=== PATIENT | female | born 1990 | race Caucasian/White ===

== ENCOUNTER → 2019-06-10 14:50 | Outpatient (BNVA) | payer OTHER, SELFPAY | PROVIDERS: Referring Provider Obstetrics & Gynecology; Visit Provider Obstetrics & Gynecology | DX: O20.0 Threatened abortion (principal) | CPT/HCPCS: 84702 ==

== ENCOUNTER → 2019-06-14 11:00 | Outpatient (BNVA) | payer OTHER, SELFPAY | PROVIDERS: Referring Provider Obstetrics & Gynecology; Visit Provider Obstetrics & Gynecology | DX: O03.9 Complete or unspecified spontaneous abortion without complication (principal) | CPT/HCPCS: 84702 ==

== ENCOUNTER 2019-11-26 09:49 | Outpatient (CLI) | payer OTHER, SELFPAY ==
--- NOTE | 2019-11-26 09:51 | MR_ITS ---
WS: [id number] MRI HEAD WITHOUT CONTRAST TECHNIQUE: Sagittal T1, T2 axial, T2 axial FLAIR, axial and coronal T1 images, axial susceptibility w eighted imaging, axial diffusion weighted images, and coronal T2 images were obtained. CLINICAL INFORMATION: BLURRED VISION;HYPERTENSION;HEADACHE COMPARISON: None. FINDINGS: No evidence of restricted diffusion to suggest acute ischemia. Ventricular system and basal cisterns are patent. No suspicious intracranial signal abnormalities. Normal oates-white differentiation. Radha l posterior fossa. Normal vascular flow voids at the skull base. No extra-axial fluid collections. Re tention cysts within the maxillary sinuses. Mild mucosal thickening ethmoid air cells. Mastoid air ce lls well aerated. No hemosiderin on susceptibly weighted images. Normal optic chiasm and pituitary infundibulum. Normal cavernous sinuses. MR/MR head wo con* [id number] IMPRESSION: 1. No evidence of restricted diffusion to suggest acute ischemia. 2. No suspicious intracranial signal abnormalities. 3. Retention cysts within the maxillary sinuses. 4. Normal optic chiasm and pituitary infundibulum. 5. No hemosiderin on the susceptibly weighted images.
--- NOTE | 2019-11-26 10:53 | USCV_ITS ---
Sobia Leon Age: 29 Gender: F : 1990 Exam Date: 11/26/2019 10:56 Ordering Phys: Saima Woodruff Technologist: Eden Qureshi Exam Location: [facility] [place] Indication: BLURRED VISION FAMILY HISTORY OF GENETIC NARROWING OF CCA Risk Factors: fAMILY HISTORY OF NARROW CCA. SYMPTOMS ON RT SIDE Previous Vascular Surgery: None Right Brachial BP: / Left Brachial BP: / Right Left Velocity (cm/s) Spectral Plaque Velocity (cm/s) Spectral Plaque Syst/Diast Broadening Syst/Diast Broadening 140.00/40.80 Prox CCA 120.80/ 36.30 94.80/ 30.90 Mid CCA 81.10 / 31.70 84.90/ 28.70 Distal CCA 87.00 / 25.90 91.50/ 26.50 Prox ICA 76.40 / 23.50 108.10/39.70 Mid ICA 100.20/ 32.60 87.30/ 31.30 Distal ICA 103.80/ 36.20 114.70 ECA 101.10 1.14 ICA/CCA 1.28 Antegrade Vertebral Antegrade 26.00/ 6.90 cm/s 53.10/ 19.30 cm/s Tri Subclavian Tri 113.0 169.4 0 0 FINDINGS ntimal thickening at the bifurcations and internal carotid arteries bilaterally Antegrade flow in the vertebral arteries bilaterally Normal Doppler flow velocities in the external carotid arteries bilaterally CONCLUSIONS Intimal thickening at the bifurcations and internal carotid arteries bilaterally. No significant stenosis, based on the above findings Dr Yoel Crump MD FACC (Electronically Signed) Final Date: 27 November 2019 20:21 S
== END 2019-11-26 09:50 | disposition home or self-care (01) ==
LOC: RADSHAW 09:50
PROVIDERS: PCP Nurse Practitioner Family; Visit Provider Nurse Practitioner Family
DX: H53.8 Other visual disturbances (principal); I10 Essential (primary) hypertension; R51 Headache; I65.23 Occlusion and stenosis of bilateral carotid arteries; J34.1 Cyst and mucocele of nose and nasal sinus
CPT/HCPCS: 70551; 93880

== ENCOUNTER → 2020-02-29 09:17 | Outpatient (BNVA) | payer OTHER, SELFPAY | PROVIDERS: PCP Nurse Practitioner Family; Visit Provider Obstetrics & Gynecology | DX: Z34.90 Encounter for supervision of normal pregnancy, unspecified, unspecified trimester (principal) | CPT/HCPCS: 84702 ==

== ENCOUNTER → 2020-04-05 11:32 | Outpatient (BNVA) | payer OTHER, SELFPAY | PROVIDERS: PCP Nurse Practitioner Family; Visit Provider Family Medicine | DX: Z20.828 Contact with and (suspected) exposure to other viral communicable diseases (principal) | CPT/HCPCS: 87635 ==

== ENCOUNTER 2020-09-04 22:30 | Inpatient (IN) | payer OTHER, SELFPAY ==
[2020-09-04] VITALS (12 sets, daily range): BP systolic 189–206; BP diastolic 93–108; PULSE 78–106; TEMP 37.1; O2SAT 98–100
--- NOTE | 2020-09-04 21:33 | USR_ITS ---
PROCEDURE INFORMATION: Exam: US Biophysical Profile Without Non-Stress Test Exam date and time: 09/04/2020 9:43 PM Age: 30 years old Clinical indication: Other: Decreased movement; TECHNIQUE: Imaging protocol: US biophysical profile without non-stress testing. COMPARISON: US OB >= 14 weeks fetus [id number] 06/15/2020 10:39 AM FINDINGS: BIOPHYSICAL PROFILE: Breathin/2 Gross body movements: 0/2 tone: 0/2 Qualitative amniotic fluid: 2/2 Biophysical Profile Score: 2/8 US/US OB BPP wo NST [id number] IMPRESSION: 1. Biophysical profile score is 2 out of 8. 2. Largest single vertical amniotic pocket 5.9 cm. 3. heart beat 138 bpm. 4. Cephalic presentation. 5. Posterior placenta.
--- NOTE | 2020-09-04 22:40 | ANES.PREANE2 ---
Pre-Anesthetic Assessment Pre-Anesthetic Assessment: Height/Weight: Height 17.37 m Temp Pulse BP Pulse Ox 98.8 F 90 206/100 99 09/04/20 21:06 09/04/20 22:00 09/04/20 22:00 09/04/20 21:51 Preop Diagnosis: IUP, decreased movement Was Beta Gabino taken within 24 hours: N/A Was Clonidine taken within 24 hours: N/A Social: Social History: No alcohol and No tobacco Exam: Pre-Anes Outpt Exam: alert, oriented x 3, clear to auscultation bilaterally and regular rate & rhythm Airway: Submandibular: WNL Cervical ROM: WNL MP: 2 History/ROS: No significant history except as noted Pulmonary: Pulmonary: None reported CV/HEM: CV/HEM: None reported : : None reported Hepatic: Hepatic: None reported GI: GI: None reported Metabolic: Metabolic: Morbid obesity Musc/skel: Musc/skel: None reported Neuropsych: Neuropsych: None reported Anesthetic Plan: ASA status: 2E Anesthesia: Anesthesia Evaluation and General Data Anesthesia Cardiac Studies: No Data to Display
--- NOTE | 2020-09-04 23:18 | XRR_ITS ---
PROCEDURE INFORMATION: Exam: XR Abdomen Exam date and time: 09/04/2020 11:33 PM Age: 30 years old Clinical indication: Screening exam; Post surgical status; ; Prior surgery; Surgery date: Post-operative (0-2 days); Additional info: Stat section TECHNIQUE: Imaging protocol: XR of the abdomen. Views: Frontal supine view of the abdomen. 1 View. COMPARISON: No relevant prior studies available. FINDINGS: Gastrointestinal tract: Moderate retained feces. Bones/joints: Unremarkable. XR/XR abdomen 1V* [id number] IMPRESSION: Moderate retained feces.
[2020-09-04 23:39] LABS: Basophils # 0.1 10^3/uL (0.0-0.1); Basophils % 0.5 %; Eosinophils # 0.1 10^3/uL (0.0-0.8); Eosinophils % 0.4 %; Hematocrit 38.3 % (37.0-47.0); Hemoglobin 13.5 g/dL (11.5-15.3); Lymphocytes # 2.8 10^3/uL (0.8-4.8); Lymphocytes % 16.6 %; Mean Corpuscular HGB Conc 35.2 g/dL (30.0-36.0); Mean Corpuscular Hemoglobin 30.8 pg (28.0-34.0); Mean Corpuscular Volume 87.2 fL (81-99); Mean Platelet Volume 13.4 fL (7.4-10.4); Monocytes # 1.2 10^3/uL (0.2-0.9); Monocytes % 7.3 %; Neutrophils # 12.46 10^3/uL (1.8-7.7); Neutrophils % 74.6 %; Nucleated Red Blood Cells % 0 %; Platelet Count 151 10^3/cmm (130-400); Red Blood Count 4.39 10^6/uL (4.1-5.3); Red Cell Distribution Width 12.9 % (12.1-15.1); White Blood Count 16.7 10^3/uL (4.0-10.0)
--- NOTE | 2020-09-04 23:56 | P.HP_ITS ---
Providers/Chief Complaint Admitting Physician: Trace Daily MD Primary Care Provider: Trace Daily Chief Complaint: decreased movement History of Present Illness Sobia Leon is a 30 year old 3 para 1-0-1-1 female at 31 weeks and 6 days who presented to the hospital because of reduced movement. She not felt the baby move all day. When she arrived to the hospital, heart tones were hard to find, and a deceleration was noted. A biophysical profile was ordered. She had 2 points for 4 breathing and only had an RASHEED of 5 I am not sure what the largest single vertical pocket was. There was no movement or breathing activity noted for 30 minutes. She did have some variability in her heart tones but she continued to have decelerations. As result I made the decision to proceed with a stat . Review of Systems General: Reports: 10 or more systems reviewed and unremarkable except in HPI and below Const: Reports: fatigue; Denies: fever(s) Eyes: Denies: change in vision Card: Denies: chest pain Musc: Reports: back pain Nasim/Lymph: Denies: easy bruising Medications/Allergies Home Medications Medication Instructions Recorded Confirmed Last Taken Type No Known Home Medications 06/10/19 06/10/19 Unknown History Allergies Allergy/AdvReac Type Severity Reaction Status Date / Time No Known Allergies Allergy Verified 02/29/20 09:12 Vitals/I&O/Wt Last Vital Signs Temp 98.8 F 09/04/20 21:06 Pulse 90 09/04/20 22:00 BP 206/100 09/04/20 22:00 Pulse Ox 99 09/04/20 21:51 Physical Exam Const: COMMON NORMALS: patient oriented x3 and alert HENMT: COMMON NORMALS: moist oral mucous membranes HEAD & SCALP: normal to inspection Chest: COMMONS NORMALS: normal inspection of the chest Resp: COMMON NORMALS: clear to auscultation bilaterally AUSCULTATION: clear to auscultation bilaterally Cardio: COMMON NORMALS: regular rate and regular rhythm RATE: regular rate RHYTHM: regular rhythm GI: INSPECTION: Yes normal to inspection and Yes other (Gravid) Extremity: COMMON NORMALS: normal to inspection GENERAL: Yes edema (Trace) Neuro: COMMON NORMALS: patient oriented x3, moves all extremities and no sensory deficits noted SENSORIUM/ORIENTATION: Yes alert Psych: COMMON NORMALS: mental status grossly normal APPEARANCE: Yes other (Very anxious) Skin: COMMON NORMALS: no rashes or lesions noted GENERAL SKIN EXAM: no rashes or lesions noted Data : 09/04/20 22:35 A&P Assessment and plan (1) distress affecting labor: A stat was ordered. I contacted Dr. Quezada as well as anesthesia. I also contacted [facility] so that they could have a team coming as we performed her . Status: Acute (2) 31 weeks gestation of : Status: Acute (3) Gestational hypertension: The patient was incredibly nervous and has been noted to have blood pressure responded to her anxiety in the past. As such it is not clear if her blood pressure was a physiologic or a psychiatric phenomenon. If it does not come down after the , we will treat her for preeclampsia. 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
[2020-09-05] VITALS (34 sets, daily range): BP systolic 126–179; BP diastolic 68–117; PULSE 75–106; RESP 15–18; TEMP 36.5–37; O2SAT 88–102; BMI 45.4
--- NOTE | 2020-09-05 00:08 | PM.OP ---
Operative Report Date of procedure: September 05, 2020 Pre-op Diagnosis: 31-week IUP, decreased movement Post-op Diagnosis: Abruption Procedure Done: Stat low-transverse section Specimens removed/disposition: 1. 31-week female with Apgars of 3 6 and 9. Weight is still unknown. 2. Placenta with a three-vessel cord delivered intact. Pathology: other (Placenta) Surgeon: Trace Daily Anesthesia: General Estimated blood loss (mL): 800 Complications: None Condition: stable Disposition: floor Brief History: Refer to history and physical Procedure: The patient was brought back to the operating room where she was quickly prepped and draped. General anesthesia was initiated. A lower transverse skin incision was then made with a #10 blade. I then dissected down to the underlying subcutaneous tissue until arriving at the prerectal fascia. The fascia was then nicked with the scalpel bilaterally. The fascial incisions were then carried laterally with Clifford scissors. Attention was then turned to the superior aspect of the incision which was grasped with kochers and tented up away from the underlying rectus abdominis muscles. The muscles were then dissected away from the fascia manually, and later with Clifford scissors. Attention was then turned to the inferior aspect of the incision, and the fascia was dissected away from the underlying muscle in similar fashion. The rectus abdominis muscles were then spread manually. The peritoneum was entered manually. Excellent visualization of the uterus was noted. A lower transverse uterine incision was then made with a #10 blade. Upon arriving at the intrauterine cavity, the uterine incision was then extended manually. The was noted to be in vertex position. The baby was delivered without difficulty. There was no meconium. There was no nuchal cord. Mature, dark clots were noted in the uterus. The cord was cut and clamped. The baby was then handed to Dr. Rivera and the nurse. The placenta was removed intact. The uterus was externalized. The intrauterine cavity was cleansed of any remaining debris. The uterine incision was reapproximated in 2 layers. The first layer was performed with 0 Vicryl in a running locked stitch. The second layer was an imbricating stitch also using 0 Vicryl. The uterus was replaced into the abdomen. The peritoneum was then irrigated with warm saline. I reexamined the uterine incision and found it to be hemostatic. The rectus abdominis muscles were then reapproximated using 0 Vicryl in a running stitch. The fascia was then reapproximated using 0 Vicryl in running stitch. The subcutaneous tissue was then reapproximated using 0 Vicryl in a running stitch. The skin was then reapproximated using 4-0 Vicryl with a Aleksandar needle in a running subcuticular stitch. An x-ray was performed and was within normal limits with no laps or instruments identified in the abdomen. Also of note, the patient's blood pressure was within normal limits while under general anesthesia. After coming out of general anesthesia, and becoming more anxious, her blood pressure once again started to elevate, though not yet to the presurgical levels.
[2020-09-05] MEDS: LORazepam 2 mg/mL INJ 1 mL 0.5 MG IVP (00:33)
[2020-09-05] MEDS: ketorolac 30 mg/mL INJ IVP ×4 (01:19→19:45)
[2020-09-05 01:56] LABS: Add Urine Culture? Yes; Add Urine Microscopic? YES; Bacteria Urine 1+ /hpf; Bilirubin Urine Neg (Negative); Blood Urine 2+ (Negative); Glucose Urine UA Norm (Normal); Ketones Urine Negative (Negative); Leukocyte Esterase Urine Negative (Negative); Nitrate Urine Negative (Negative); Protein Urine 3+ (Negative); Specific Gravity, Urine 1.015 (1.005-1.030); Squamous Epithelial Cell Urine 0-4 /hpf (0-5); Urine Appearance SL Hazy (CLEAR); Urine Color Yellow (Yellow); Urobilinogen Urine Norm (Negative); WBC Urine 15-25 /hpf (0-5); pH Urine 5 (5-7)
--- NOTE | 2020-09-05 02:00 | ANE.PACU2 ---
Inpatient post-anesthesia follow up: Airway intact: Yes Vital signs: Temperature 98.6 F Pulse Rate 77 Respiratory Rate 16 Blood Pressure 145/89 Pulse Oximetry 96 Oxygen Delivery Me thod Room Air Oxygen Flow Rate Fraction of Inspir ed Oxygen Hydration adequate: Yes Nausea and vomiting: No Pain level: 2 Mental status: Baseline
[2020-09-05 02:38] LABS: Urine Creatinine 265 mg/dL (28-217)
[2020-09-05 02:49] LABS: Alanine Aminotransferase 13 U/L (0-33); Albumin Level 3.3 g/dL (3.5-5.2); Alkaline Phosphatase 106 IU/L (35-105); Anion Gap 16.7 (5-19); Aspartate Amino Transferase 17 U/L (0-32); Blood Urea Nitrogen 13 mg/dL (6-20); Calcium 8.3 mg/dL (8.5-10.5); Carbon Dioxide 17 mmol/L (22-29); Chloride 104 mmol/L (98-107); Globulin 3.2 g/dL (1.3-4.6); Glomerular Filtration Rate 99.6 mL/min (90-130); Glucose 87 mg/dL (65-115); Osmolality Calculated 277 mOsm/kg (285-295); Potassium 3.7 mmol/L (3.5-5.1); Sodium 134 mmol/L (136-145); Total Bilirubin 0.3 mg/dL (0.15-1.2); Total Protein 6.5 g/dL (6.6-8.7); Uric Acid 6.7 mg/dL (2.4-5.7)
[2020-09-05] MEDS: magnesium sulfate premix 4 GM/100 ML PREMIX IV (03:20)
--- NOTE | 2020-09-05 04:15 | PC.NURSE ---
called STAT section 2239. To OR room at 2244, cut time 2250. Infant delivery time of 2250. Placenta 2251. PRIYANKA RN
[2020-09-05] MEDS: labetalol 5 mg/mL SDV 20mL 20 MG IVP (06:53)
[2020-09-05] MEDS: prenatal vitamin Capsule 1 CAP PO (11:14)
[2020-09-05] MEDS: dextrose 5%-lactated ringers 1,000 ML 125 ML IV (11:14)
[2020-09-05] MEDS: docusate sodium 100 mg Capsule PO ×2 (11:15→19:46)
[2020-09-05] MEDS: HYDROcodone-acetaminophen 5-325 mg Tablet PO ×2 (11:19→22:32)
[2020-09-05 12:28] LABS: Hematocrit 31.4 % (37.0-47.0); Mean Corpuscular Hemoglobin 30.6 pg (28.0-34.0); Mean Corpuscular Volume 87.2 fL (81-99); Mean Platelet Volume 12.5 fL (7.4-10.4); Platelet Count 134 10^3/cmm (130-400); Red Cell Distribution Width 12.7 % (12.1-15.1); White Blood Count 19.9 10^3/uL (4.0-10.0)
[2020-09-05] MEDS: magnesium sulfate premix 20 GM/500 ML BAG IV (14:30)
[2020-09-06] MEDS: HYDROcodone-acetaminophen 5-325 mg Tablet PO ×2 (04:10→09:42)
[2020-09-06 04:11] VITALS: BP 145/89; PULSE 77; RESP 16; TEMP 37
[2020-09-06 04:46] VITALS: BP 145/89; PULSE 77; RESP 16; TEMP 37
--- NOTE | 2020-09-06 07:25 | P.DS_ITS ---
Discharge Providers JUNIOR ACCOUNTANT BOOKKEEPER Date of Admission: 09/04/20 22:30 Date of Discharge: 09/06/20 Attending Provider at Admission: Trace Daily MD Attending Provider at Discharge: Trace Daily MD Primary Care Provider: Trace Daily Diagnoses at Discharge Discharge Diagnosis (1) distress affecting labor: Status: Acute (2) 31 weeks gestation of : Status: Acute (3) Gestational hypertension: Status: Acute Reason for Visit Reason for Visit: decreased movement Hospital Course Hospital Course The patient is a 30-year-old 3 para 1-0-1-1 with an estimated gestation al age of 31 weeks and 5 days who presented to the hospital with reduced movement. A biophysical profile was performed and the baby was found to have a 2 out of 8 biophysical profile. She is also noted to have decelerations on her heart tones. As result a decision was made to proceed with a stat C- section. The was unremarkable. The baby did remarkably well considering her gestational age. During that process the patient was also noted to have elevated blood pressures. In the past she been noted to have high blood pressures that were result of anxiety that resolved once anxiety resolved as well. I was hopeful that was what was causing her blood pressures to be elevated. The week prior she had a protein creatinine ratio was 0.17. A preeclamptic panel was found and her protein creatinine ratio was found to be 3. As result she was placed on magnesium for 24 hours. Her course was relatively unremarkable. Her bleeding was unremarkable. Her urine output was appropriate. She did continue to have mildly elevated blood pressures with systolic blood pressures ranging 140s to 150 range. Her pain was well controlled. Despite her elevated blood pressures, she did not have any other symptoms of preeclampsia. Information Peripartum Data: Delivery Method: Physical Exam Narrative: EXAM NARRATIVE: She is in no acute distress Lungs are clear auscultation bilaterally Her heart has a regular rate and rhythm Her fundus is below the umbilicus and firm Her dressing is clean, dry and intact Her extremities have trace edema Urinary Catheter Management^: Sneed: Cath Placed During This Visit: yes, but has since been removed by the nurse Reason for Continuing Indwelling Catheter: Decision to DC Catheter Urinary Catheter Date of Insertion: 09/04/20 Urinary Catheter Time of Insertion: 22:41 Date Urinary Catheter Removed: 09/05/20 Time Urinary Catheter Discontinued: 23:00 Discharge Data Data Completed and Pending: Completed Studies During Hospitalization Category Date Time Status XR abdomen 1V* 74 018 Stat Exams 09/04/20 23:18 Completed US OB BPP w o NST 98202 Stat Ultrasound 09/04/20 21:33 Completed Pending at discharge Category Date Time Status Urine Culture Sta t Lab 09/05/20 01:45 Received Pathology: Surgic al [PTH] Stat Pth 09/04/20 23:26 Ordered Labs from last 24 hours 09/05/20 09/05/20 09/05/20 12:10 12:10 01:35 WBC 19.9 H RBC 3.60 L Hgb 11.0 L Hct 31.4 L MCV 87.2 MCH 30.6 MCHC 35.0 RDW 12.7 Plt Count 134 MPV 12.5 H Blood Type O Negative Rho(D) Type Negative / 0 Antibody Screen Positive Antibody Identific ation Anti-D Screen Negative Vitals: Last Vital Signs Temp 98.6 F 09/06/20 04:46 Pulse 77 09/06/20 04:46 Resp 16 09/06/20 04:46 BP 145/89 09/06/20 04:46 Pulse Ox 96 09/05/20 14:10 Discharge Plan Discharge Patient Disposition: Home Condition: Stable Prescriptions: New hydrocodone-acetaminophen 5-325 mg Tablet 1 - 2 tab PO Q4H PRN (Reason: Moderate To Severe Pain) Qty: 30 RF: 0 DOK 100 mg Capsule 100 mg PO BID Qty: 20 RF: 0 ibuprofen 800 mg Tablet 800 mg PO TID Qty: 45 RF: 0 Continued RF: 0 Discharge Orders: Discharge Order (Routine); Ordered 09/06/20 Ordered By: Trace Daily Referrals: Trace Daily MD [Physician] - 4-7 days Discharge Diet: Usual diet Discharge Activity: Limit activity as instructed Patient Instructions: Opioid Safety Discharge Attestations JUNIOR ACCOUNTANT BOOKKEEPER Time Spent in Discharge Care*: less than 30 min Coding Level of Care Code Acute Occupational Health Rn for Chg Fwd Diagnoses distress affecting labor O77.9 31 weeks gestation of Z3A.31 Gestational hypertension O13.9
--- NOTE | 2020-09-06 09:01 | PC.NURSE ---
note Pt. reports milk expression is going well. She has no questions
[2020-09-06] MEDS: measles,mumps,rubella pf Vial (w/diluent) 0.5 ML SUBCUT (09:40)
[2020-09-06] MEDS: ibuprofen 800 mg tablet PO (09:42)
[2020-09-06] MEDS: prenatal vitamin Capsule 1 CAP PO (09:42)
[2020-09-06] MEDS: docusate sodium 100 mg Capsule PO (09:42)
[2020-09-06 10:00] VITALS: BP 148/102; PULSE 109; RESP 16; TEMP 36.7; O2SAT 98
== END 2020-09-06 10:00 | disposition home or self-care (01) | DRG 788 ==
LOC: OPOB 09-05 08:02 → OBGYN 09-05 08:02
PROVIDERS: Admitting Provider Family Medicine; PCP Nurse Practitioner Family; Visit Provider Family Medicine
PROC: (CPT 59514; principal; 2020-09-04 22:50)
DX: O45.93 Premature separation of placenta, unspecified, third trimester (principal); O76 Abnormality in fetal heart rate and rhythm complicating labor and delivery; O13.4 Gestational [pregnancy-induced] hypertension without significant proteinuria, complicating childbirth; O14.94 Unspecified pre-eclampsia, complicating childbirth; Z3A.31 31 weeks gestation of pregnancy; Z37.0 Single live birth
CPT/HCPCS: 12345; 36415; 51702; 59025; 59409; 74018; 76819; 80053; 80500; 81001; 82570; 84156; 84550; 85025; 85027; 85460; 86850; 86870; 86900; 87086; 88307; 90384; 90707; 96372; 96374; 96375; 98960; 99211; J0330; J1170; J1885; J2060; J2405; J2704; J3010; J3475; J3490

== ENCOUNTER 2021-09-03 08:12 | Emergency (ER) | payer OTHER, SELFPAY ==
[2021-09-03 08:15] VITALS: BP 176/80; PULSE 91; RESP 18; TEMP 36.6; O2SAT 100; BMI 43.8
[2021-09-03 08:18] VITALS: BP 161/105; PULSE 95; RESP 18; TEMP 36.6; O2SAT 98
--- NOTE | 2021-09-03 08:20 | ECG_ITS ---
[facility] Test Date: 2021-09-03 Pat Name: Sobia Leon Department: Room: Gender: Female Clinical Data Management Manager: : 1990 Requested By: Derek Diaz Order Number: [id number] Melani MD: Vishnu Oliveira M.D. Measurements Intervals [place] Rate: 103 P: 41 IN: 173 QRS: 26 QRSD: 94 T: 20 QT: 319 QTc: 418 Interpretive Statements SINUS TACHYCARDIA ABNORMAL RHYTHM ECG No previous ECG available for comparison Electronically Signed On 09-03-2021 16:23:20 CDT by Vishnu Oliveira M.D. [id number]
--- NOTE | 2021-09-03 08:20 | CT_ITS ---
WS: [id number] CT HEAD TECHNIQUE: Noncontrast CT of the head obtained from the skullbase to the vertex. CLINICAL INFORMATION: Symptoms of Acute Stroke COMPARISON: None. DLP: 866.[address] scans at [facility] use at least one of these dose optimization techniques: automated e xposure control; mA and/or kV adjustment per patient size (includes targeted exams where dose is matc hed to clinical indication); or iterative reconstruction. FINDINGS: No evidence of intracranial hemorrhage or mass effect. Ventricular system and basal cisterns are razo nt. No extra-axial fluid collections. No evidence of mass or mass effect. Normal oates-white different iation. Paranasal sinuses and mastoid air cells are well aerated. .Normal visualized soft tissues. CT/CT head wo con* [id number] IMPRESSION: 1. No evidence of intracranial hemorrhage or mass effect. 2. Normal oates-white differentiation. 3. No acute intracranial findings.
--- NOTE | 2021-09-03 08:33 | CT_ITS ---
WS: [id number] CTA HEAD AND NECK TECHNIQUE: Contrast enhanced CTA of the head and neck with coronal and sagittal reformatted images an d maximum intensity projection (MIP) images. NASCET criteria utilized. CLINICAL INFORMATION: known thrombosis, R sided weakness COMPARISON: None. DLP: 2544.[address] scans at [facility] use at least one of these dose optimization techniques: automated e xposure control; mA and/or kV adjustment per patient size (includes targeted exams where dose is matc hed to clinical indication); or iterative reconstruction. FINDINGS: Some images degraded by venous contamination. RIGHT: RIGHT common carotid artery is patent. No significant RIGHT ICA stenosis. RIGHT ICA is patent to the skull base. LEFT: LEFT common carotid artery is patent. No significant LEFT ICA stenosis. LEFT ICA is patent to t he skull base. INTRACRANIAL CTA: Both vertebral arteries are patent. LEFT dominant vertebral artery. RIGHT vertebral RIGHT partially e nds in PICA. Basilar artery is patent. Normal vascularity to the NATIONAL ACCOUNT REPRESENTATIVE territory bilaterally. Both ICAs are patent at the skull base. Normal vascularity to the MANI and MCA territories bilaterally . Patent anterior communicating artery. Patent posterior communicating arteries bilaterally. Lung apices are well aerated. Straightening of the normal cervical lordosis. Retention cyst RIGHT maxillary sinus. CT/CT angio headneck* [id number] IMPRESSION: 1. No significant ICA stenosis bilaterally. 2. Normal intracranial CTA. No flow-limiting stenosis. 3. No other acute findings.
[2021-09-03 08:43] LABS: Basophils # 0.1 10^3/uL (0.0-0.1); Basophils % 0.9 %; Eosinophils # 0.3 10^3/uL (0.0-0.8); Hematocrit 45.7 % (37.0-47.0); Hemoglobin 14.7 g/dL (11.5-15.3); Lymphocytes # 3.8 10^3/uL (0.8-4.8); Lymphocytes % 41.3 %; Mean Corpuscular HGB Conc 32.2 g/dL (30.0-36.0); Mean Corpuscular Hemoglobin 28.2 pg (28.0-34.0); Mean Corpuscular Volume 87.5 fl (81-99); Mean Platelet Volume 11.3 fL (7.4-10.4); Monocytes # 0.8 10^3/uL (0.2-0.9); Monocytes % 8.2 %; Neutrophils # 4.31 10^3/uL (1.8-7.7); Neutrophils % 46.4 %; Nucleated Red Blood Cells % 0 %; Platelet Count 204 10^3/cmm (130-400); Red Blood Count 5.22 10^6/uL (4.1-5.3); Red Cell Distribution Width 14.7 % (12.1-15.1); White Blood Count 9.3 10^3/uL (4.0-10.0)
--- NOTE | 2021-09-03 08:43 | ED_ITS ---
HPI - Neuro Symptoms/Deficit General: Chief Complaint: Neuro Symptoms/Deficit Stated Complaint: facial numbness Time Seen by Provider: 09/03/21 08:19 Source: patient Mode of arrival: ambulatory Limitations: no limitations History of Present Illness: 31-year-old female presents emergency room with complaints of numbness on the right side of her mouth. Patient has subclavian and right internal jugular thrombosis for which she is on Coumadin. Is requiring 15 mg of Coumadin daily to maintain her anticoagulation status. These DVTs are thought to be result of COVID infection. She has a family history of a father who had a early stroke. She also has markedly elevated blood pressure today when she arrives here. She has been taking all of her medications regularly. She feels a little bit weak on the right side however on testing she has normal no visual disturbances no difficulty speech or swallowing. Onset (ago): minute(s) Time: 08:15 Last Observed Normal: 08:02 Location: right face History of same: No Severity: mild Quality: numb Relieving factors: none Exacerbating factors: none Associated symptoms: Deny chest pain, malaise, nausea or vomiting Review of Systems Const: Denies: fever(s), chills, body aches, change in appetite, fatigue or malaise ENMT: Denies: throat pain, ear or mastoid pain, nasal discharge or nasal congestion Card: Denies: chest pain, edema, dyspnea on exertion or orthopnea Resp: Denies: dyspnea, productive cough or non-productive cough GI: Denies: abdominal pain, nausea, vomiting, hematemesis, coffee ground emesis, diarrhea, constipation, bloating, hematochezia or melena : Denies: flank pain, difficulty voiding, dysuria, urinary frequency or urinary urgency Skin/Breast: Denies: rash or pruritus PFS ED PFSH: Medical History 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 COVID-19 Deep vein thrombosis (DVT) of right upper extremity Surgical History Delivery by section NIH stroke score NIHSS: Level Of Consciousness - 1a: 0 Level Of Consciousness Questions - 1b: Both Correct Level Of Consciousness Commands - 1c: Both Correct Best Gaze - 2: Normal Visual Grover - 3: No Visual Loss Facial Palsy - 4: Radha l Motor Arm Right - 5: No Drift Motor Arm Left - 5: No Drift Motor Leg Right - 6: No Drift Motor Leg Left - 6: No Drift Limb Ataxia - 7: Absent Sensory - 8: Normal Best Language - 9: No Aphasia Dysarthia - 10: Normal Extinction And Inattention - 11: 0 Score: Total Score: 0 Physical Exam Const: GENERAL APPEARANCE: cooperative and comfortable ORIENTATION/CONSCIOUSNESS: Yes awake, Yes oriented to person, Yes oriented to place and Yes oriented to time HENMT: COMMON NORMALS: normocephalic and atraumatic HEAD & SCALP: normocephalic and atraumatic Neck/C-Spine: COMMON NORMALS: no JVD Resp: COMMON NORMALS: normal respiratory effort, No retractions, No use of accessory muscles and clear to auscultation bilaterally AUSCULTATION: clear to auscultation bilaterally Cardio: COMMON NORMALS: no JVD, regular rate, regular rhythm and No murmurs present (Cardio) RATE: regular rate RHYTHM: regular rhythm GI: COMMON NORMALS: Soft to palpation and No hepatosplenomegaly present AUSCULTATION: Yes normoactive bowel sounds PALPATION: Yes Soft to palpation, No Tenderness to palpation present (GI), No Guarding due to palpation present (GI) and Yes No hepatosplenomegaly present : COMMON NORMALS: No no CVA tenderness BLADDER/KIDNEY EXAM: No no CVA tenderness Back/Pelvis: COMMON NORMALS: negative for no CVA tenderness Extremity: COMMON NORMALS: normal to inspection, capillary refill normal, no clubbing, cyanosis or edema, no calf tenderness and no pedal edema Neuro: SENSORIUM/ORIENTATION: Yes oriented to person, Yes oriented to place and Yes oriented to time OTHER: NIH of 0. Subjectively patient reports right facial numbness of the corner of her mouth however only test her to sensation is normal bilaterally. Skin: COMMON NORMALS: no rashes or lesions noted GENERAL SKIN EXAM: no rashes or lesions noted Course Vital Signs: Vital signs: Vital Signs Temperature 98.6 F 09/03/21 11:06 Pulse Rate 68 09/03/21 11:06 Respiratory Rate 18 09/03/21 11:06 Blood Pressure 135/70 09/03/21 11:06 Pulse Oximetry 96 09/03/21 11:06 MDM - Neuro Symptoms/Deficit Medical Decision Making Patient has persistent right periorbital numbness although on testing she states that generally feels about the same but she has a sense that it is numb on that side. She has had this in the past as well had an MRI for a couple years ago. Blood pressure was little elevated when she got here she has no focal neurologic deficits CT of the head and CTA head and neck are negative discussed with her primary care doctor Dr. Daily also discussed Dr. Moss sense is that this probably a migraine variant will get started on low-dose topiramate give her ketorolac and promethazine here we will discharge her home have her follow-up with primary care and set up follow-up with neurology. In addition to that we starting on the topiramate we discussed the risks and benefits with breast- feeding her child is 11 months old started on a low-dose just 25 at bedtime there is not a lot of data available discussed with her she is still is comfortable with trialing it for now. Medical Records I reviewed the patient's medical records. Lab Data I reviewed the patient's lab results. : 09/03/21 08:35 09/03/21 08:[address] 09/03/21 08:20 IMPRESSION: 1. No evidence of intracranial hemorrhage or mass effect. 2. Normal oates-white differentiation. 3. No acute intracranial findings. Head/Neck CTA 09/03/21 08:33 IMPRESSION: 1. No significant ICA stenosis bilaterally. 2. Normal intracranial CTA. No flow-limiting stenosis. 3. No other acute findings. Laboratory Results WBC 9.3 10^3/uL (4.0-10.0) 09/03/21 08:35 RBC 5.22 10^6/uL (4.1-5.3) 09/03/21 08:35 Hgb 14.7 g/dL (11.5-15.3) 09/03/21 08:35 Hct 45.7 % (37.0-47.0) 09/03/21 08:35 MCV 87.5 fl (81-99) 09/03/21 08:35 MCH 28.2 pg (28.0-34.0) 09/03/21 08:35 MCHC 32.2 g/dL (30.0-36.0) 09/03/21 08:35 RDW 14.7 % (12.1-15.1) 09/03/21 08:35 Plt Count 204 10^3/cmm (130-400) 09/03/21 08:35 MPV 11.3 fL (7.4-10.4) H 09/03/21 08:35 Neut % (Auto) 46.4 % 09/03/21 08:35 Lymph % (Auto) 41.3 % 09/03/21 08:35 [place] % (Auto) 8.2 % 09/03/21 08:35 Eos % (Auto) 3.0 % 09/03/21 08:35 Baso % (Auto) 0.9 % 09/03/21 08:35 Neut # (Auto) 4.31 10^3/uL (1.8-7.7) 09/03/21 08:35 Lymph # (Auto) 3.8 10^3/uL (0.8-4.8) 09/03/21 08:35 [place] # (Auto) 0.8 10^3/uL (0.2-0.9) 09/03/21 08:35 Eos # (Auto) 0.3 10^3/uL (0.0-0.8) 09/03/21 08:35 Baso # (Auto) 0.1 10^3/uL (0.0-0.1) 09/03/21 08:35 Nucleated RBC % (auto) 0 % 09/03/21 08:35 Nucleated RBCs # 0.0 /100WBC 09/03/21 08:35 PT 19.30 SECONDS (12.1-14.9) H 09/03/21 08:35 INR 1.59 (0.8-1.2) H 09/03/21 08:35 APTT 30.5 SECONDS (23.9-36.7) 09/03/21 08:35 Sodium 138 mmol/L (136-145) 09/03/21 08:35 Potassium 3.3 mmol/L (3.5-5.1) L 09/03/21 08:35 Chloride 104 mmol/L (98-107) 09/03/21 08:35 Carbon Dioxide 21 mmol/L (22-29) L 09/03/21 08:35 Anion Gap 16.3 (5-19) 09/03/21 08:35 BUN 18 mg/dL (6-20) 09/03/21 08:35 Creatinine 0.7 mg/dL (0.5-0.9) 09/03/21 08:35 GFR Calculation 98.9 mL/min (90-130) 09/03/21 08:35 Glucose 126 mg/dL (65-115) H 09/03/21 08:35 POC Glucose 119 mg/dL (70-110) H 09/03/21 08:34 Calculated Osmolality 289 mOsm/kg (285-295) 09/03/21 08:35 Calcium 9.3 mg/dL (8.5-10.5) 09/03/21 08:35 Total Bilirubin 0.3 mg/dL (0.15-1.2) 09/03/21 08:35 AST 14 U/L (0-32) 09/03/21 08:35 ALT 19 U/L (0-33) 09/03/21 08:35 Alkaline Phosphatase 116 IU/L (35-105) H 09/03/21 08:35 Total Protein 8.2 g/dL (6.6-8.7) 09/03/21 08:35 Albumin 4.6 g/dL (3.5-5.2) 09/03/21 08:35 Globulin 3.6 g/dL (1.3-4.6) 09/03/21 08:35 Urine Color Yellow (Yellow) 09/03/21 09:20 Urine Appearance Clear (CLEAR) 09/03/21 09:20 Urine pH 5 (5-7) 09/03/21 09:20 Ur Specific [place] 1.010 (1.005-1.030) 09/03/21 09:20 Urine Protein Neg (Negative) 09/03/21 09:20 Urine Glucose (UA) Norm (Normal) 09/03/21 09:20 Urine Ketones Negative (Negative) 09/03/21 09:20 Urine Blood 2+ (Negative) H 09/03/21 09:20 Urine Nitrate Negative (Negative) 09/03/21 09:20 Urine Bilirubin Neg (Negative) 09/03/21 09:20 Urine Urobilinogen Norm mg/dL (Negative) 09/03/21 09:20 Ur Leukocyte Esterase Negative (Negative) 09/03/21 09:20 Urine RBC 0-4 /hpf (0-2) H 09/03/21 09:20 Urine WBC 0-4 /hpf (0-5) H 09/03/21 09:20 Ur Squamous Epith Cells 10-15 /hpf (0-5) H 09/03/21 09:20 Amorphous Sediment Not Reportable 09/03/21 09:20 Urine Bacteria 1+ /hpf (NONE) H 09/03/21 09:20 Urine Mucus 1+ /hpf 09/03/21 09:20 Urine Opiates Screen Negative ng/mL (Negative) 09/03/21 09:20 Ur Barbiturates Screen Negative ng/mL (Negative) 09/03/21 09:20 Ur Phencyclidine Scrn Negative ng/mL (Negative) 09/03/21 09:20 Ur Amphetamines Screen Negative ng/mL (Negative) 09/03/21 09:20 U Benzodiazepines Scrn Negative ng/mL (Negative) 09/03/21 09:20 Urine Cocaine Screen Negative ng/mL (Negative) 09/03/21 09:20 U Marijuana (THC) Screen Negative ng/mL (Negative) 09/03/21 09:20 Discharge Plan Discharge Patient Disposition: Home Clinical Impression: Migraine variant, HTN (hypertension), Deep vein thrombosis (DVT) of right upper extremity, 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 Condition: Stable Prescriptions: New topiramate 25 mg tablet 25 mg PO .qhs Qty: 30 0RF amlodipine 5 mg tablet 5 mg PO DAILY Qty: 30 0RF No Action 0RF hydrocodone-acetaminophen 5-325 mg Tablet 1 - 2 tab PO Q4H PRN (Reason: Moderate To Severe Pain) Qty: 30 0RF DOK 100 mg Capsule 100 mg PO BID Qty: 20 0RF ibuprofen 800 mg Tablet 800 mg PO TID Qty: 45 0RF Discharge Orders: Discharge ED (Routine); Ordered 09/03/21 Ordered By: Derek Purdy Referrals: Saima Woodruff FNP [Nurse Practitioner] - Patient Instructions: Opioid Safety Activity Restrictions/Additional Instructions: distribution manager will make arrangements for you to have follow-up with neurology follow-up with Dr. Daily within the week. Coding Level of Care Code ED Inspector And Hand Packager for Chg Fwd Exam Comprehensive
[2021-09-03 08:48] LABS: Glucose Point of Care 119 mg/dL (70-110)
[2021-09-03 09:01] LABS: INR 1.59 (0.8-1.2)
[2021-09-03 09:08] LABS: Alanine Aminotransferase 19 U/L (0-33); Albumin Level 4.6 g/dL (3.5-5.2); Alkaline Phosphatase 116 IU/L (35-105); Anion Gap 16.3 (5-19); Aspartate Amino Transferase 14 U/L (0-32); Blood Urea Nitrogen 18 mg/dL (6-20); Calcium 9.3 mg/dL (8.5-10.5); Carbon Dioxide 21 mmol/L (22-29); Chloride 104 mmol/L (98-107); Globulin 3.6 g/dL (1.3-4.6); Glomerular Filtration Rate 98.9 mL/min (90-130); Glucose 126 mg/dL (65-115); Osmolality Calculated 289 mOsm/kg (285-295); Potassium 3.3 mmol/L (3.5-5.1); Sodium 138 mmol/L (136-145); Total Bilirubin 0.3 mg/dL (0.15-1.2); Total Protein 8.2 g/dL (6.6-8.7)
[2021-09-03] MEDS: iohexol 350 mg/mL 100 mL Btl IV (09:11)
[2021-09-03 09:12] LABS: Partial Thromboplastin Time 30.5 SECONDS (23.9-36.7)
[2021-09-03 09:16] VITALS: BP 167/106; RESP 18; O2SAT 96
[2021-09-03] MEDS: amlodipine 10 mg Tablet PO (09:21)
[2021-09-03] MEDS: labetalol 5 mg/mL SDV 20mL 10 MG IVP (09:21)
[2021-09-03 09:40] LABS: Add Urine Microscopic? YES; Bilirubin Urine Neg (Negative); Blood Urine 2+ (Negative); Glucose Urine UA Norm (Normal); Ketones Urine Negative (Negative); Leukocyte Esterase Urine Negative (Negative); Nitrate Urine Negative (Negative); Protein Urine Neg (Negative); Urine Appearance Clear (CLEAR); Urine Color Yellow (Yellow); Urobilinogen Urine Norm (Negative); pH Urine 5 (5-7)
[2021-09-03 09:41] LABS: Amphetamines Screen Urine Negative (Negative); Bacteria Urine 1+ /hpf; Barbiturates Screen Urine Negative (Negative); Benzodiazepines Screen Urine Negative (Negative); Cocaine Screen Urine Negative (Negative); Mucus Urine 1+ /hpf; Opiate Screen Urine Negative (Negative); PCP Screen Urine Negative (Negative); RBC Urine 0-4 /hpf (0-2); THC Screen Urine Negative (Negative); WBC Urine 0-4 /hpf (0-5)
[2021-09-03 09:42] LABS: Add Urine Culture? No
[2021-09-03] MEDS: ketorolac 30 mg/mL INJ IVP (10:41)
[2021-09-03] MEDS: promethazine 25 mg/mL SDV 1 mL IM (10:42)
[2021-09-03 10:47] VITALS: BP 141/78; PULSE 73; RESP 18; O2SAT 96
[2021-09-03 11:06] VITALS: BP 135/70; PULSE 68; RESP 18; TEMP 37; O2SAT 96
--- NOTE | 2021-09-04 13:36 | DCPLANNER ---
Addendum entered by Julia Guadarrama 09/07/21 13:13: air export logistics manager was told that clinic Attempted to reach her at [phone] and it went to [email or web address]. Left message. Referral has been logged. Original Note: air export logistics manager had message to schedule a follow up appointment for patient with neurology. air export logistics manager sent patients information to the front office staff at neurology. Patients information will be printed and reviewed. Clinic will call patient with appointment information.
== END 2021-09-03 11:08 | disposition home or self-care (01) ==
PROVIDERS: Emergency Provider Family Medicine; PCP Family Medicine
DX: G43.909 Migraine, unspecified, not intractable, without status migrainosus (principal); I10 Essential (primary) hypertension; I82.621 Acute embolism and thrombosis of deep veins of right upper extremity; Z79.01 Long term (current) use of anticoagulants; Z86.16 Personal history of COVID-19
CPT/HCPCS: 36415; 36416; 70450; 70496; 70498; 80053; 80306; 81001; 82962; 85025; 85610; 85730; 93005; 96372; 96374; 96375; 99285; J1885; J2550; J3490; Q9967

== ENCOUNTER 2023-01-09 14:58 | Outpatient (CLI) | payer OTHER, SELFPAY ==
[2023-01-09 15:39] LABS: INR 5.23 (0.8-1.2)
== END 2023-01-09 14:59 | disposition home or self-care (01) ==
PROVIDERS: PCP Family Medicine; Visit Provider Family Medicine
DX: Z86.718 Personal history of other venous thrombosis and embolism (principal)
CPT/HCPCS: 85610